=== PATIENT | female | born 1980 | race Caucasian/White ===

== ENCOUNTER → 2022-02-14 13:02 | Outpatient (CLI) | payer OTHER, SELFPAY | PROVIDERS: PCP Internal Medicine; Visit Provider Nurse Practitioner Family | DX: R06.81 Apnea, not elsewhere classified (principal); F45.8 Other somatoform disorders; R53.83 Other fatigue; G47.8 Other sleep disorders; M26.19 Other specified anomalies of jaw-cranial base relationship; R06.83 Snoring | CPT/HCPCS: 95806 ==